=== PATIENT | female | born 2005 | race African-American/Black ===

== ENCOUNTER 2025-04-15 18:26 | Inpatient (IN) | payer OTHER ==
[2025-04-15 18:44] VITALS: BMI 35.4
[2025-04-15] MEDS ORDERED: Carboprost 250 MCG/ML AMP IM PRN (21:06)
[2025-04-15] MEDS ORDERED: Lidocaine 1% (PF) 30 ML VIAL SC PRN (21:06)
[2025-04-15] MEDS ORDERED: HYDROcodone/Acetaminophen 5/325 mg Tablet PO PRN (21:06)
[2025-04-15] MEDS ORDERED: Acetaminophen 500 MG TAB PO PRN (21:06)
[2025-04-15] MEDS ORDERED: Methylergonovine 0.2 MG/ML VIAL IM PRN (21:06)
[2025-04-15] MEDS ORDERED: Diphenoxylate HCl/Atropine Tablet PO PRN (21:06)
[2025-04-15] MEDS ORDERED: hydrALAZINE 20 MG/ML VIAL SLOW IVP PRN (21:06)
[2025-04-15] MEDS ORDERED: Tranexamic Acid 1,000 MG/10 ML VIAL IVP PRN (21:06)
[2025-04-15] MEDS ORDERED: Ondansetron PF 4 MG/2 ML Vial IVP PRN (21:06)
[2025-04-15 22:22] LABS: Hematocrit 33.5 % (34.9-44.5); Hemoglobin 10.9 g/dL (12.0-15.5); Mean Corpuscular Hemoglobin 29.5 pg (27.0-33.0); Mean Corpuscular Volume 90.8 fL (81.6-98.3); Platelet Count 251 10x3/uL (150-450); Red Blood Cell (RBC) Count 3.69 10x6/uL (3.90-5.03); White Blood Cell (WBC) Count 9.46 10x3/uL (3.5-10.5)
[2025-04-15 23:19] LABS: Hep B Surf Ag - L&D Non-Reactive S/CO (NonReactive)
[2025-04-15 23:20] LABS: Syphilis Antibody Index 0.13 S/CO (<1.00 Non-Reactive)
[2025-04-16] MEDS ORDERED: Oxytocin 30 units/NS 500 ML 500 ML IV SCH (08:30)
[2025-04-16] MEDS: fentaNYL/Ropivacaine Epidural 100 ML ONE (20:06)
[2025-04-16] MEDS ORDERED: Acetaminophen 325 MG TAB PO PRN (20:17)
[2025-04-16] MEDS ORDERED: diphenhydrAMINE 50 MG/ML VIAL IVP PRN (20:17)
[2025-04-16] MEDS ORDERED: Ondansetron PF 4 MG/2 ML Vial IVP PRN (20:17)
[2025-04-16] MEDS ORDERED: fentaNYL 2 mcg/Ropivacaine 0.2% Epidural 100 ML CADD EPIDURAL SCH (20:30)
[2025-04-16] MEDS ORDERED: Communication Order-Pharmacy FS SCH (20:30)
[2025-04-16] MEDS ORDERED: Lidocaine 1% (PF) 30 ML VIAL SC PRN (20:45)
[2025-04-16] MEDS: Penicillin G Potassium 5 MILL.UNITS in Sodium Chloride 0.9% 100 ML IVPB SCH (20:50)
[2025-04-17] MEDS: Penicillin G 2.5 MILL.units 2.5 MILL.UNITS in Premix 1 BAG IVPB SCH (00:35)
[2025-04-17] MEDS: Oxytocin 30 units/NS 500 ML 500 ML IV SCH (00:53)
[2025-04-17] MEDS: Ibuprofen 800 MG TAB PO PRN (05:29)
[2025-04-17] MEDS ORDERED: Ondansetron PF 4 MG/2 ML Vial IVP PRN (06:24)
[2025-04-17] MEDS ORDERED: Milk Of Magnesia 30 ML UDCUP PO PRN (06:24)
[2025-04-17] MEDS ORDERED: Lanolin Ointment 7 GM TUBE TOP PRN (06:24)
[2025-04-17] MEDS ORDERED: diphenhydrAMINE 25 MG CAP PO PRN (06:24)
[2025-04-17] MEDS ORDERED: Bisacodyl 10 MG SUPP PR PRN (06:24)
[2025-04-17] MEDS ORDERED: hydrALAZINE 20 MG/ML VIAL SLOW IVP PRN (06:24)
[2025-04-17] MEDS ORDERED: Bupivacaine 0.25% HCL 30 ML VIAL ONE (07:00)
[2025-04-17] MEDS: fentaNYL/Ropivacaine Epidural 100 ML ONE (07:05)
[2025-04-17] MEDS: Ferrous Sulfate 325 MG TAB PO SCH (08:28)
[2025-04-17] MEDS: HYDROcodone/Acetaminophen 5/325 mg Tablet PO PRN (11:37)
[2025-04-17] MEDS: Benzocaine-Menthol 82.5 ML CAN TOP PRN (11:41)
[2025-04-17] MEDS: Ibuprofen 800 MG TAB PO SCH (13:11)
[2025-04-17] MEDS: Witch Hazel 100 PAD JAR TOP PRN (21:56)
[2025-04-18 12:20] VITALS: BP 113/69; TEMP 98.3
== END 2025-04-18 16:35 | disposition home or self-care (01) | DRG 807 ==
LOC: EEVIPCON 18:26 → CSHLD/OP 18:26 → CSHLD 21:36 → CSHPP 04-17 06:15
PROVIDERS: ADMIT Family Medicine; ATTEND Family Medicine
PROC: 10E0XZZ Delivery of Products of Conception, External Approach (ICD-10-PCS; principal; 2025-04-17)
PROC: 0KQM0ZZ Repair Perineum Muscle, Open Approach (ICD-10-PCS; 2025-04-17)
PROC: 0UQMXZZ Repair Vulva, External Approach (ICD-10-PCS; 2025-04-17)
PROC: 3E03329 Introduction of Other Anti-infective into Peripheral Vein, Percutaneous Approach (ICD-10-PCS; 2025-04-17)
DX: O76 Abnormality in fetal heart rate and rhythm complicating labor and delivery (principal); Z37.0 Single live birth; Z3A.35 35 weeks gestation of pregnancy; O99.02 Anemia complicating childbirth; O70.1 Second degree perineal laceration during delivery; O71.82 Other specified trauma to perineum and vulva
CPT/HCPCS: 36415; 51702; 76819; 85027; 86780; 86850; 86900; 86901; 87340; 99285; J0665; J2540; J2590

== ENCOUNTER 2025-04-19 01:40 | Emergency (ER) | payer OTHER ==
[2025-04-19] MEDS ORDERED: Ketorolac Tromethamine 30 MG (1 mL) VIAL ONE (01:59)
[2025-04-19 02:35] LABS: #Basophils 0.03 10x3/uL (0.0-0.2); #Eosinophils 0.27 10x3/uL (0.0-0.5); #Monocytes 0.89 10x3/uL (0.0-1.1); #Neutrophils 12.69 10x3/uL (1.5-8.4); %Basophils 0.2 % (0.0-2.0); %Eosinophils 1.7 % (0.0-6.0); %Lymphocytes 12.6 % (18.0-47.0); %Monocytes 5.5 % (0.0-10.0); %Neutrophils 79.1 % (40.0-75.0); Hematocrit 31.9 % (34.9-44.5); Hemoglobin 10.3 g/dL (12.0-15.5); Mean Corpuscular Hemoglobin 29.8 pg (27.0-33.0); Mean Corpuscular Volume 92.2 fL (81.6-98.3); Platelet Count 251 10x3/uL (150-450); Red Blood Cell (RBC) Count 3.46 10x6/uL (3.90-5.03); White Blood Cell (WBC) Count 16.05 10x3/uL (3.5-10.5)
[2025-04-19 02:47] LABS: Glucose, Urine (Dipstick) Normal (Negative); Leukocyte 100 (Negative); Protein, Urine (Dipstick) 100 mg/dl (Neg-Trace); Specific Gravity, Urine 1.025 (1.005-1.030)
[2025-04-19 02:47] LABS: ALT (SGPT) 8 U/L (Less than 34); AST (SGOT) 18 U/L (11-34); Albumin 2.8 g/dL (3.1-4.5); Alkaline Phosphatase 66 U/L (40-110); Anion Gap 12 mmol/L (10-20); BUN (Urea Nitrogen) 7 mg/dL (7.0-18.7); Bilirubin, Total 0.4 mg/dL (0.3-1.2); Calc. Creatinine Clearance 0 mL/min (70-130); Calcium 8.5 mg/dL (7.8-10.44); Carbon Dioxide 22 mmol/L (22-29); Chloride 108 mmol/L (98-107); Globulin 3.4 g/dL (2.4-3.5); Glucose 100 mg/dL (70-105); Potassium 3.6 mmol/L (3.5-5.1); Sodium 138 mmol/L (136-145)
[2025-04-19 02:54] LABS: Bacteria/HPF 1+ HPF (None Seen); CAUTI Indications for Culture Pelvic or flank pain; RBC/HPF Greater than 50 HPF (0-3)
[2025-04-19 02:55] LABS: Urine Culture Reflex No No
[2025-04-19] MEDS ORDERED: Methylergonovine 0.2 MG/ML VIAL IM SCH (04:45)
[2025-04-19] MEDS ORDERED: Oxytocin 30 units/NS 500 ML 500 ML IVPB SCH (04:45)
== END 2025-04-19 07:30 | disposition home or self-care (01) ==
LOC: CSHERS 01:40
DX: O72.2 Delayed and secondary postpartum hemorrhage (principal); Z37.9 Outcome of delivery, unspecified
CPT/HCPCS: 76856; 80053; 81001; 83605; 85025; 86850; 86900; 86901; 87086; 93976; 96372; 96374; 96375; J1885; J2210; J2590